=== PATIENT | male | born 1945 | race Caucasian/White ===

== ENCOUNTER 2020-02-13 06:59 | Observation (INO) | payer MEDICARE, OTHER ==
[2020-02-13] VITALS (17 sets, daily range): BP systolic 115–170; BP diastolic 51–81
[~2020-02-13] VITALS: Ht 177.8 cm; Wt 99.8 kg
[2020-02-13] MEDS ORDERED: CLOB15CR TP (07:35)
[2020-02-13] MEDS ORDERED: FLUO15CR TP (07:35)
[2020-02-13] MEDS ORDERED: ATOR20TA58 PO (07:35)
[2020-02-13 07:38] LABS: HEMATOCRIT 47.4 % (39.0-53.0); HEMOGLOBIN 16.2 g/dL (13.0-17.5); RED BLOOD COUNT 5.32 x10^6/uL (4.30-5.70); RED CELL DISTRIBUTION WIDTH 15.4 % (11.5-14.5); WHITE BLOOD COUNT 6.4 x10^3/uL (4.0-11.0)
[2020-02-13] MEDS ORDERED: HEPARIN for ARTERIAL LINE 1,500 ML ONE (07:38)
[2020-02-13] MEDS ORDERED: LIDOCAINE 1% Multi-Dose 20 ML VIAL. ONE (07:38)
[2020-02-13] MEDS ORDERED: IODIXANOL 320 MG/ML 100 ML VIAL. ONE (07:38)
[2020-02-13] MEDS ORDERED: IV NORMAL SALINE 1000ML BAG 1,000 ML IV ONE (07:45)
[2020-02-13 07:47] LABS: CALCIUM 8.7 mg/dL (8.5-10.1); CREATININE 1.5 mg/dL (0.7-1.3); GFR 45.6
[2020-02-13 08:02] LABS: PROTHROMBIN TIME PATIENT 13.8 SEC (11.7-14.0)
[2020-02-13] MEDS ORDERED: MIDAZOLAM HCL/PF 2 MG/2 ML VIAL. ONE (08:21)
[2020-02-13] MEDS ORDERED: fentaNYL PF VIAL 100 MCG/2 ML VIAL ONE (08:21)
[2020-02-13] MEDS ORDERED: HEPARIN for IV BOLUS 10,000 UNIT/10 ML VIAL. ONE (08:21)
[2020-02-13] MEDS ORDERED: IODIXANOL 320 MG/ML 100 ML VIAL. IART ONE (09:15)
[2020-02-13] MEDS ORDERED: HEPARIN for IV BOLUS 10,000 UNIT/10 ML VIAL. IV ONE (09:15)
[2020-02-13] MEDS ORDERED: fentaNYL PF VIAL 100 MCG/2 ML VIAL IV ONE (09:15)
[2020-02-13] MEDS ORDERED: LIDOCAINE 1% Multi-Dose 20 ML VIAL. INJ ONE (09:15)
[2020-02-13] MEDS ORDERED: MIDAZOLAM HCL/PF 2 MG/2 ML VIAL. IV ONE (09:15)
[2020-02-13] MEDS ORDERED: CONTRAST GIVEN. MC PRN (09:30)
--- NOTE | 2020-02-13 10:46 | CARD ---
MR#: [id number] Date of Study: 02/13/2020 Ordering Physician: LUCIAN MONAE, Referring Physician: LUCIAN MONAE, Tech: RT Shirley (R) ARMANDO APPROVED REPORT Patient StatusOUT-PATIENT Mold Injector: RT Shirley (R) ARMANDO Procedure(s) performed: FLOURO TIME 19.7 MINUTES DOSE 194.4Gycm2 MODERATE SEDATION 88 MINUTES CONTRAST 55 VISIPAQUE HISTORY : The patient is a 74 year-old male with a history of . INDICATION FOR PROCEDURE The indication(s) include : Bilateral claudication, Right greater than left lifestyle limiting claudi cation.. PROCEDURE NARRATIVE After appropriate informed consent, the patient was brought to the labourers and placed in the supine position. Preprocedural timeout was completed and confirmed the right patient and procedure. The bila teral groins were prepped and draped in usual sterile fashion. Moderate sedation acheived with Fentan yl and Versed. The patient received 7000 units of Heparin for anticoagulation. Access: Under lidocaine local anesthesia, a 5Fr introducer sheath was placed in the LCFA via the florentino fied seldinger technique with a J-tipped guidewire and an 18g needle. Diagnostic angiography was then performed using a 5Fr Omniflush catheter with digital subtraction angiography. Next, the contralater al (RCFA) was accessed with the aid of the Omniflush catheter and a J-tipped guidewire. An aortogram was performed using CO2. Right lower extremity with DSA was performed using contrast. Prior to case c ompletion, LLE DSA angiography was performed using contrast. FINDINGS: AO: 154/86 AORTA: Mild diffuse irregularities with mild ectasia. No focal stenosis. RENAL arteries: Single right and left renal arteries were identified without significant disease. RCIA: Mild diffuse irregularities of up to 20%. REIA: No significant disease. RIIA: No significant disease. RCFA: No significant disease. RSFA: Mild irregularities in the proximal and mid segment. RPOP: Occlusion at the P1 segment of the popliteal artery with reconstitution via geniculate and medi al thigh collaterals at the P2 segment. RAT: Occluded in the mid segment with reconstitution via distal peroneal collaterals. RTP trunk: No significant disease. RPT: Severe diffuse disease with occlusion. RPER: No significant disease and provides collateral flow to the foot. LCIA: Mild diffuse irregularities of upto 20%. SILVANO: Mild diffuse irregularities. LIIA: Mild diffuse irregularities. LCFA: No significant disease. LSFA: Distal 50% stenosis. LPOP: No significant disease. LAT: No significant disease. LTP trunk: No significant disease. INTERVENTIONAL TECHNIQUE: ATTEMPTED PVI OF THE R POPLITEAL ARTERY Given the patient's lifestyle limiting claudication, an intervention was attempted. Hepain was used f or anticoagulation for an ACT > 200. The left sided sheath was exchanged for a 6Fr Valente Sheath and t his was placed in the RCFA. Next, with the aid of a NaviCross catheter, a 0.014 Command LT, Command E S and Command 250T wires were unable to cross the occlusion. A standard glide wire was also used and unable to cross the occlusion. Due to a large geniculate collateral at the site of the occlusion, lac k of CLI and CKD, further intervention was deferred. Conclusion 1. [place] category 4 claudication 2. R popliteal arter P1 segment occlusion 3. Unsuccessful PVI of the R popliteal artery Recommendations 1. Continue smoking cessation efforts. 2. Plan for referral to vascular surgery for consideration of bypass versus repeat attempt at interve ntion via femoral/pedal approach. Signed by : Lucian Monae, Electronically Approved : 02/13/2020 10:45:54
[2020-02-13] MEDS ORDERED: ASPI81TA50 PO (10:48)
[2020-02-13] MEDS ORDERED: LIDOCAINE 2%/EPI 1:100,000 20 ML VIAL. IJ ONE (11:15)
[2020-02-13] MEDS ORDERED: MIDAZOLAM HCL/PF 5 MG/5 ML VIAL. IV ONE (11:15)
[2020-02-13] MEDS ORDERED: fentaNYL PF VIAL 250 MCG/5 ML VIAL IV ONE (11:15)
[2020-02-13] MEDS ORDERED: IOHEXOL 300 MG/ML 100ML VIAL. IART ONE (11:15)
--- NOTE | 2020-02-13 12:06 | NUR ---
pt has been very fidgety and kept moving left leg after repeated instructions not to and why. nurse again noticed leg bent and upon inspection left groin site dressing was saturated and pt had a pool of wet blood under him to the inside of his leg. dressing removed , pressure held above stick site. hardness noted to the inside and below stick site- pressure held x 5 minutes with resolved hardness. continued to hold pressure above site for total 0f 10 minutes. no further bleeding or swelling noted. left leg is noticeably cooler and is more purplish in color. rechecked pedal and post tibial pulses which had been found earlier with doppler and were not found at this time. notified Dr. Simmons , new order for US of the LLE.
--- NOTE | 2020-02-13 12:54 | RAD ---
MR#: [id number] Date of Study: 02/13/2020 Ordering Physician: LUCIAN MONAE, Referring Physician: LUCIAN MONAE, Tech: Compa Christensen MBA, RDMS, RVT, RDCS, RTR APPROVED REPORT Patient Location: OUT-PATIENT Indications Pulselessness VELOCITY AND DOPPLER WAVEFORM ANALYSIS RIGHT cm/secWaveformSeverity LEFT cm/secWaveform Severity dCFA dCFA 97.0Biphasic Prof Fem Art. Prof Fem Art. 75.0Biphasic Fem Art Prox. Fem Art Prox. 85.0Biphasic Fem Art Mid. Fem Art Mid. 90.0Biphasic Fem Art Dist. Fem Art Dist. 210.0Biphasic Pop Art(Fossa) Pop Art(AK) 66.0 SUPPLY PERSON Prox. SUPPLY PERSON Prox. 43.0Biphasic SUPPLY PERSON Dist. SUPPLY PERSON Dist. 54.0Biphasic CHANTE Prox. CHANTE Prox. 51.0Biphasic DPA DPA 60Biphasic Findings Box scale images reveal diffuse plaque. Color doppler flow is noted from the LCFA to the DP artery in the LLE. Spectral waveforms reveals biphasic pattern. Probable moderate 50% stenosis involving the left distal SFA. Critical Notification Critical Value: No <Conclusion> 1. No evidence of angioseal complications with patent BODY CLEANER, SFA, Popliteal and AT/PT as well as DP ves sels on duplex ultrasound. Signed by : Lucian Monae, Electronically Approved : 02/13/2020 12:53:55
--- NOTE | 2020-02-13 13:30 | NUR ---
Report given to Radha HUERTA regarding bleeding complications post procedure. Patient's left leg is warm to touch and patient stated he is getting feeling back in the top of his left foot. Ultrasound showed no occlusions in left lower extremity arteries. Admit order placed per Dr. Simmons's instruction. Patient's came to bedside so that she could see the patient before she left to return home. Patient's was given code to give RN on second floor in order to call and get information about the patient. Patient's vital signs stable and again patient was reminded to keep his head down and left leg straight. Patient to remain flat in bed until 1600.
--- NOTE | 2020-02-13 13:59 | NUR ---
The patient, MALIK PETERSON, 74 y/o, M admitted by LUCIAN MONAE MD, s/p abdominal aortogram procedure to [facility] and was given written information regarding hospital policies, unit procedures and contact persons. Valuables were checked and and left at bedside in patients room. Patient educated to lay flat to prevent bleeding and hematoma at procedure site. Patient verbalized understanding
[2020-02-14 03:24] VITALS: BP 185/80
[2020-02-14 07:15] VITALS: BP 153/83
--- NOTE | 2020-02-14 10:17 | NUR ---
Pt discharged this shift at approx 1000. Patients geo Bradford called and spoke to her regarding discharge instructions, follow up appts, smoking cessation etc. Patient given discarge instructions as well. Vascular to follow up with the patient. Patients geo Bradford states that the pt has an appt on 03-13-[address] Simmons.
--- NOTE | 2020-02-14 11:53 | PDOC3 ---
KERIWILLIAM Jaimes MORTGAGE LOAN ASSISTANT 02/14/20 1152: Discharge Summary Visit Information Date of Admission: Feb 13, 2020 Date of Discharge: Feb 14, 2020 Admitting Diagnosis: LE PAD with claudications Final Diagnosis Severe RLE PAD with claudications, HLP, tobaccoism Brief Hospital Course Allergies Allergies Coded Allergies Type Severity Reaction Last Updated Verified No Known Drug Allergies 02/13/20 No Vital Signs Vital Signs Date Time Temp Pulse Resp B/P (MAP) Pulse Ox O2 Delivery O2 Flow Rate FiO2 02/14/20 07:15 97.9 77 18 153/83 (106) 96 Room Air 97.9 02/13/20 20:16 2.0 Lab Results Laboratory Tests Test 02/13/20 07:30 02/13/20 09:50 White Blood Count 6.4 x10^3/uL (4.0-11.0) Red Blood Count 5.32 x10^6/uL (4.30-5.70) Hemoglobin 16.2 g/dL (13.0-17.5) Hematocrit 47.4 % (39.0-53.0) Mean Corpuscular Volume 89 fL (79-100) Mean Corpuscular Hemoglobin 30 pg (25-35) Mean Corpuscular Hemoglobin Concent 34 g/dL (31-37) Red Cell Distribution Width 15.4 % (11.5-14.5) Platelet Count 175 x10^3/uL (140-400) Prothrombin Time 13.8 SEC (11.7-14.0) Prothromb Time International Ratio 1.1 (0.8-1.1) Activated Partial Thromboplast Time 31 SEC (24-38) Sodium Level 138 mmol/L (136-145) Potassium Level 4.0 mmol/L (3.5-5.1) Chloride Level 101 mmol/L (98-107) Carbon Dioxide Level 29 mmol/L (21-32) Anion Gap 8 (6-14) Blood Urea Nitrogen 13 mg/dL (8-26) Creatinine 1.5 mg/dL (0.7-1.3) Estimated GFR (Cockcroft-Gault) 45.6 Glucose Level 100 mg/dL (70-99) Calcium Level 8.7 mg/dL (8.5-10.1) Activated Clotting Time 223 sec (92-181) Brief Hospital Course Mr. Nicole is a 74 old male admitted for planned femoral arteriogram for noted LE claudications. He is also significant for CKD3, HTN, HLP and tobaccoism. Arteriogram revealed mild disease to LLE but noted with R popliteal artery P1 segment occlusion with unsuccessful PVI of the R popliteal artery. Bilateral femoral arteriotomy sites are intact without pain, swelling or oozing. Neurovascular status to bilateral LE intact. AOx3, LSCTA. Pt is ambulatory and is hurrying up to go home. VSS but with mildly labile episodes on his BP. He currently does not have HTN meds and encouraged HBPM and reevaluate BP med needs as an outpt. DASH diet.Discussed smoking cessation and post procedural instructions. Continue ASA and statin. Follow up in office as scheduled and will provide vascular referral. Discharge Information Condition at Discharge: Stable Follow Up: Weeks (4) Disposition/Orders: D/C to Home Scheduled Aspirin (Aspir-Low) 81 Mg Tablet.dr, 1 TAB PO DAILY for heart health/blood thinner, #30 Ref 3 (Reported) Entered as Reported by: TRACE DUVAL on 02/13/201047 Last Action: New Order on 02/13/201047 by TRACE DUVAL Atorvastatin Calcium (Atorvastatin Calcium) 20 Mg Tablet, 1 TAB PO DAILY for high cholesterol, #30 Ref 5 (Reported) Entered as Reported by: TRACE DUVAL on 02/13/20734 Last Taken: Unknown Dose on 02/13/20 Last Action: New Order on 02/13/20734 by TRACE DUVAL Clobetasol Propionate (Clobetasol Propionate) 15 Gm Cream..g., 1 ROXANA TP BID for as needed for skin, #15 (Reported) Entered as Reported by: TRACE DUVAL on 02/13/20734 Last Taken: Unknown Dose on 01/13/20 Last Action: New Order on 02/13/20734 by TRACE DUVAL Fluocinonide (Fluocinonide) 15 Gm Cream..g., 1 ROXANA TP BID for as needed for skin, #30 Ref 1 (Reported) Entered as Reported by: TRACE DUVAL on 02/13/20734 Last Taken: Unknown Dose on 01/13/20 Last Action: New Order on 02/13/20734 by TRACE DUVAL Patient Instructions Patient Instructions GENERAL INSTRUCTIONS: 1. Your dressing should be removed prior to leaving the hospital. 2. It is OK to shower the day after your procedure. 3. If you received stents, be sure to carry your stent information card with you in your wallet/purse at all times. 4. Call the office immediately at [phone] if you notice any fever or if there is redness, worsening tenderness/pain, increased bruising, or drainage from the puncture site. 5. Should you have bleeding from the site, lie down immediately & put pressure on the site. The pressure should be hard enough to stop the bleeding. Have the nearest person call 911. DO NOT try to drive to the ER with active bleeding. 6. If you notice a change in color, coolness to touch, or loss of feeling in the affected extremity, come to the emergency room. Please have someone drive you or call 911 if no one is available. DO NOT drive yourself. 7. If you normally take glucophage (metformin), please do not take this medicine for 48 hours following your procedure. 8. DO NOT STOP TAKING YOUR PLAVIX OR ASPIRIN UNLESS IT IS CLEARED BY A HOT BOX OPERATOR OF YOUR ROLLER COASTER OPERATOR AT OUR OFFICE. 9. QUIT SMOKING: the [place] [employer], [place] [employer], & [place] [employer] have cessation resources available on their websites 10. Please have someone available to drive you home from the hospital as you may be limited by sedation medications given during the procedure. Femoral (Groin) access: 1. Do no lifting, pushing, pulling, bending, stooping, or recurrent stair climbing for 3 days following your procedure. 2. Once past the first 3 days, do not do any HEAVY exertion or lifting for one week following the procedure. No gym workouts, running, lifting greater than a gallon of milk, etc 3. Do not submerge in bath or pool for one week. OK to drive 3 days following your procedure, but if going long distance, do not go alone & take hourly breaks to get out of car and walk around. Call the office at [phone] for any questions or concerns. LUCIAN MONAE MD 02/14/20 6067: Discharge Summary Brief Hospital Course Brief Hospital Course Patient seen and examined. Agree with above nurse practitioner note. 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 He does not have any critical limb ischemia. We will follow-up in the office and discuss options including repeat aggressive intervention versus consideration of bypass surgery. Supportive care. Left groin site is clean, dry and intact. He has dopplerable pulses in both legs. Okay to discharge today. Discharge Information Scheduled Aspirin (Aspir-Low) 81 Mg Tablet.dr, 1 TAB PO DAILY for heart health/blood thinner, #30 Ref 3 (Reported) Entered as Reported by: TRACE DUVAL on 02/13/201047 Last Action: New Order on 02/13/201047 by TRACE DUVAL Atorvastatin Calcium (Atorvastatin Calcium) 20 Mg Tablet, 1 TAB PO DAILY for high cholesterol, #30 Ref 5 (Reported) Entered as Reported by: TRACE DUVAL on 02/13/20734 Last Taken: Unknown Dose on 02/13/20 Last Action: New Order on 02/13/20734 by TRACE DUVAL Clobetasol Propionate (Clobetasol Propionate) 15 Gm Cream..g., 1 ROXANA TP BID for as needed for skin, #15 (Reported) Entered as Reported by: TRACE DUVAL on 02/13/20734 Last Taken: Unknown Dose on 01/13/20 Last Action: New Order on 02/13/20734 by TRACE DUVAL Fluocinonide (Fluocinonide) 15 Gm Cream..g., 1 ROXANA TP BID for as needed for skin, #30 Ref 1 (Reported) Entered as Reported by: TRACE DUVAL on 02/13/20734 Last Taken: Unknown Dose on 01/13/20 Last Action: New Order on 02/13/20734 by WILLIAM CHARLES APRN Feb 14, 2020 11:52 LUCIAN MONAE MD Feb 14, 2020 17:27
--- NOTE | 2020-02-14 12:49 | NUR ---
Pt given information on smoking cessation at discharge.
== END 2020-02-14 10:00 | disposition home or self-care (01) ==
LOC: CCL 06:59 → 2 NORTH 13:24
PROVIDERS: ADMIT Internal Medicine Cardiovascular Disease; ATTEND Internal Medicine Cardiovascular Disease
DX: I73.9 Peripheral vascular disease, unspecified (principal); E78.5 Hyperlipidemia, unspecified; F17.200 Nicotine dependence, unspecified, uncomplicated; Z79.82 Long term (current) use of aspirin
CPT/HCPCS: 36247; 36415; 75625; 75716; 80048; 85027; 85347; 85610; 85730; 93926; 96374; 96375; C1713; C1760; C1769; C1892; C1894; G0269; G0378; G0379; J1644; J2250; J3010; J3490; J7030; Q9967; 99152; 99153; C1771